=== PATIENT | male | born 1935 | race Hispanic/Latino ===

== ENCOUNTER 2020-08-04 12:43 | Outpatient (CLI) | payer MEDICARE ==
--- NOTE | 2020-08-04 14:07 | Ultrasound Report ---
ULTRASOUND EXTREMITY NONVASCULAR LEFT HISTORY: Left groin pain TECHNIQUE: Grayscale ultrasound with color Doppler imaging FINDINGS: Targeted ultrasound was performed in the left groin region at the site of pain. Normal subc utaneous tissues are demonstrated. The vascular structures are patent. No evidence for mass, adenopat hy, hernia or fluid collection. IMPRESSION: No abnormality is identified. Signer Name: Bobby Villarreal Jr, MD Signed: 08/04/2020 2:03 PM Workstation Name: [id number]
== END 2020-08-04 12:44 | disposition home or self-care (01) ==
LOC: SPVWC 12:43
PROVIDERS: ATTEND Internal Medicine
DX: R10.32 Left lower quadrant pain (principal)